=== PATIENT | female | born 1985 | race Hispanic/Latino ===

== ENCOUNTER 2018-09-30 23:00 | Emergency (ER) | payer OTHER ==
[2018-10-01] MEDS ORDERED: DERMABOND SKIN ADHESIVE TOP ONE (00:50)
[2018-10-01] MEDS ORDERED: TETANUS & DIPHTHERIA TOX,ADULT 0.5 ML VIAL ONE (00:50)
--- NOTE | 2018-10-01 01:00 | ER ---
Nurse's Notes [facility] Name: Mariza Stearns Age: 33 yrs Sex: Female : 1985 Arrival Date: 09/30/2018 Time: 23:02 Bed 17 Private MD: Diagnosis: Laceration without foreign body of thumb without damage to nail Presentation: 09/30 23:15 Presenting complaint: Patient states: "I cut my thumb while I was cutting a fruit with jd3 a knife.". Transition of care: patient was not received from another setting of care. Complicating Factors: There are no complicating factors for this patient. Onset of symptoms was September 30, 2018. Risk Assessment: Do you want to hurt yourself or someone else? Patient reports no desire to harm self or others. Initial Sepsis Screen: Does the patient meet any 2 criteria? No. Patient's initial sepsis screen is negative. Does the patient have a suspected source of infection? No. Patient's initial sepsis screen is negative. Care prior to arrival: None. 23:15 Method Of Arrival: Ambulatory j 23:15 Acuity: YANNI 4 jd3 [employer] DIRECTOR: 23:18 LMP 09/23/2018 jd3 Historical: - Allergies: 23:18 No Known Allergies; jd3 - Home Meds: 23:18 multivitamin oral oral [Active]; jd3 - PMHx: 23:18 None; jd3 - PSHx: 23:18 Tubal ligation; Cholecystectomy; jd3 - Immunization history:: Adult Immunizations up to date, Last tetanus immunization: unknown. - Social history:: Smoking status: Patient/guardian denies using tobacco. - Ebola Screening: : Patient negative for fever greater than or equal to 101.5 degrees Fahrenheit, and additional compatible Ebola Virus Disease symptoms. Screenin:22 Abuse screen: Denies threats or abuse. Nutritional screening: No deficits noted. jd3 Tuberculosis screening: No symptoms or risk factors identified. Fall Risk Ambulatory Aid- None/Bed Rest/Nurse Assist (0 pts). Gait- Normal/Bed Rest/Wheelchair (0 pts) Mental Status- Oriented to own ability (0 pts). Total Nunez Fall Scale indicates No Risk (0-24 pts). Assessment: 23:20 General: Appears in no apparent distress. uncomfortable, Behavior is calm, cooperative, jd3 appropriate for age. Pain: Complains of pain in palmar aspect of proximal phalanx of left thumb Quality of pain is described as aching, stinging. Neuro: Level of Consciousness is awake, alert, obeys commands, Oriented to person, place, time, situation. Cardiovascular: Capillary refill < 3 seconds Patient's skin is warm and dry. Respiratory: Airway is patent Respiratory effort is even, unlabored, Respiratory pattern is regular, symmetrical. GI: No signs and/or symptoms were reported involving the gastrointestinal system. : No signs and/or symptoms were reported regarding the genitourinary system. EENT: No signs and/or symptoms were reported regarding the EENT system. Derm: Skin is intact, Skin is dry, Skin is normal, Skin temperature is warm. Musculoskeletal: Circulation, motion, and sensation intact. Range of motion: intact in all extremities. Injury Description: Laceration sustained to palmar aspect of proximal phalanx of left thumb is clean, superficial, 2.6 to 7.5 cm long, is bleeding a small amount. 10/01 00:43 Reassessment: Patient appears in no apparent distress at this time. No changes from j previously documented assessment. Patient and/or family updated on plan of care and expected duration. Pain level reassessed. Patient is alert, oriented x 3, equal unlabored respirations, skin warm/dry/pink. 01:03 Reassessment: Patient appears in no apparent distress at this time. Patient and/or d3 family updated on plan of care and expected duration. Pain level reassessed. Patient is alert, oriented x 3, equal unlabored respirations, skin warm/dry/pink. reported understanding of discharge instructions, even and steady gait upon discharge. Patient states feeling better. Vital Signs: 09/30 23:09 BP 106 / 62; Pulse 48; Resp 17; Temp 97.7(O); Pulse Ox 100% on R/A; ar5 23:18 Pain 6/10; jd3 23:18 Weight 68.04 kg (R); Height 5 ft. 5 in. (165.10 cm) (R); d3 10/01 00:43 BP 124 / 86; Pulse 50; Resp 16 S; Pulse Ox 97% on R/A; jd3 09/30 23:18 Body Mass Index 24.96 (68.04 kg, 165.10 cm) jd3 ED Course: 09/30 23:02 Patient arrived in ED. ds1 23:15 Cornell Longo RN is Primary Nurse. jd3 23:17 Triage completed. jd3 23:20 Arm band placed on. jd3 23:22 Patient has correct armband on for positive identification. Bed in low position. Call jd3 light in reach. Side rails up X 1. Adult w/ patient. 10/01 00:08 Almaz Venegas FNP-C [facility]. snw 00:08 Quinn Orellana MD is Attending Physician. snw 01:02 No provider procedures requiring assistance completed. Patient did not have IV access jd3 during this emergency room visit. Administered Medications: 00:41 CANCELLED (Duplicate Order): Tetanus-Diphtheria Toxoid Adult 0.5 ml IM once jd3 00:42 Drug: Tetanus-Diphtheria Toxoid Adult 0.5 ml {Travel Ticketing Reviewer: [employer]. Exp: jd3 06/05/2020. Lot #: [id number]. } Route: IM; Site: right deltoid; 01:02 Follow up: Response: No adverse reaction jd3 Outcome: 00:41 Discharge ordered by . snw 01:02 Discharged to home ambulatory, with family. jd3 01:02 Condition: stable 01:02 Discharge instructions given to patient, family, Instructed on discharge instructions, follow up and referral plans. Demonstrated understanding of instructions, follow-up care. 01:03 Patient left the ED. jd3 Signatures: Almaz Venegas FNP-C [employer] SPECIALIST-Laney Rosanne Castano ds1 Cornell Longo RN RN Allison Pimentel ar5
--- NOTE | 2018-10-01 01:04 | EDPHYS ---
Physician Documentation [facility] Name: Mariza Stearns Age: 33 yrs Sex: Female : 1985 Arrival Date: 09/30/2018 Time: 23:02 Bed 17 Private MD: ED Physician Quinn Orellana HPI: 10/01 00:39 This 33 yrs old Female presents to ER via Ambulatory with complaints of snw Laceration To Hand. 00:39 The patient has a laceration related to: cooking, occurred at home, and there are no snw complicating factors. The injury was accidental. The laceration(s) is(are) located on the palmar aspect of proximal phalanx of left thumb. Onset: The symptoms/episode began/occurred suddenly, just prior to arrival. The patient has not experienced similar symptoms in the past. The patient has not recently seen a physician. 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 - Social history:: Smoking status: Patient/guardian denies using tobacco. - Ebola Screening: : Patient negative for fever greater than or equal to 101.5 degrees Fahrenheit, and additional compatible Ebola Virus Disease symptoms. ROS: 10/01 00:38 Constitutional: Negative for fever, chills, and weight loss, Eyes: Negative for injury, snw pain, redness, and discharge, ENT: Negative for injury, pain, and discharge, Neck: Negative for injury, pain, and swelling, Cardiovascular: Negative for chest pain, palpitations, and edema, Respiratory: Negative for shortness of breath, cough, wheezing, and pleuritic chest pain, Abdomen/GI: Negative for abdominal pain, nausea, vomiting, diarrhea, and constipation, Back: Negative for injury and pain, : Negative for injury, bleeding, discharge, and swelling, MS/Extremity: Negative for injury and deformity, Neuro: Negative for headache, weakness, numbness, tingling, and seizure, Psych: Negative for depression, anxiety, suicide ideation, homicidal ideation, and hallucinations. Skin: Positive for laceration(s), of the palmar aspect of proximal phalanx of left thumb. Exam: 00:37 Constitutional: This is a well developed, well nourished patient who is awake, alert, snw and in no acute distress. Head/Face: Normocephalic, atraumatic. Eyes: Pupils equal round and reactive to light, extra-ocular motions intact. Lids and lashes normal. Conjunctiva and sclera are non-icteric and not injected. Cornea within normal limits. Periorbital areas with no swelling, redness, or edema. ENT: Nares patent. No nasal discharge, no septal abnormalities noted. Tympanic membranes are normal and external auditory canals are clear. Oropharynx with no redness, swelling, or masses, exudates, or evidence of obstruction, uvula midline. Mucous membranes moist. Neck: Trachea midline, no thyromegaly or masses palpated, and no cervical lymphadenopathy. Supple, full range of motion without nuchal rigidity, or vertebral point tenderness. No Meningismus. Chest/axilla: Normal chest wall appearance and motion. Nontender with no deformity. No lesions are appreciated. Cardiovascular: Regular rate and rhythm with a normal S1 and S2. No gallops, murmurs, or rubs. Normal PMI, no JVD. No pulse deficits. Respiratory: Lungs have equal breath sounds bilaterally, clear to auscultation and percussion. No rales, rhonchi or wheezes noted. No increased work of breathing, no retractions or nasal flaring. Abdomen/GI: Soft, non-tender, with normal bowel sounds. No distension or tympany. No guarding or rebound. No evidence of tenderness throughout. Back: No spinal tenderness. No costovertebral tenderness. Full range of motion. MS/ Extremity: Pulses equal, no cyanosis. Neurovascular intact. Full, normal range of motion. Neuro: Awake and alert, GCS 15, oriented to person, place, time, and situation. Cranial nerves II-XII grossly intact. Motor strength 5/5 in all extremities. Sensory grossly intact. Cerebellar exam normal. Normal gait. Psych: Awake, alert, with orientation to person, place and time. Behavior, mood, and affect are within normal limits. 00:37 Skin: Appearance: normal except for affected area, injury, laceration(s), the wound is approximately 4 cm(s), with a depth of .5 cm(s), of the palmar aspect of proximal phalanx of left thumb. Vital Signs: 09/30 23:09 BP 106 / 62; Pulse 48; Resp 17; Temp 97.7(O); Pulse Ox 100% on R/A; ar5 23:18 Pain 6/10; jd3 23:18 Weight 68.04 kg (R); Height 5 ft. 5 in. (165.10 cm) (R); jd3 10/01 00:43 BP 124 / 86; Pulse 50; Resp 16 S; Pulse Ox 97% on R/A; jd3 09/30 23:18 Body Mass Index 24.96 (68.04 kg, 165.10 cm) jd3 MDM: 00:08 Patient medically screened. snw 00:42 Data reviewed: vital signs, nurses notes. Data interpreted: Pulse oximetry: on room air snw is 100 %. Interpretation: normal. Counseling: I had a detailed discussion with the patient and/or guardian regarding: the historical points, exam findings, and any diagnostic results supporting the discharge/admit diagnosis, the need for outpatient follow up, to return to the emergency department if symptoms worsen or persist or if there are any questions or concerns that arise at home. Special discussion: I discussed in detail with the patient the higher chance of wound infection based on his presenting history. Based on the history and exam findings, there is no indication for further emergent testing or inpatient evaluation. I discussed with the patient/guardian the need to see the primary care provider for further evaluation of the symptoms. 10/01 00:40 Order name: Wound Care; Complete Time: 00:42 snw 10/01 00:40 Order name: Wound dressing; Complete Time: 00:42 snw 10/01 00:40 Order name: Thumb Spica Splint; Complete Time: 01:02 snw 10/01 00:40 Order name: Dermabond; Complete Time: 00:42 snw Administered Medications: 00:41 CANCELLED (Duplicate Order): Tetanus-Diphtheria Toxoid Adult 0.5 ml IM once jd3 00:42 Drug: Tetanus-Diphtheria Toxoid Adult 0.5 ml {Mold Insert Changer: [employer]. Exp: jd3 06/05/2020. Lot #: [id number]. } Route: IM; Site: right deltoid; 01:02 Follow up: Response: No adverse reaction jd3 Disposition: 06:48 Co-signature as Attending Physician, Quinn Orellana MD I agree with the assessment and christine plan of care. Disposition: 10/01/18 00:41 Discharged to Home. Impression: Laceration without foreign body of thumb without damage to nail. - Condition is Stable. - Discharge Instructions: Cast or Splint Care, Adult, Tissue Adhesive Wound Care, Laceration Care, Adult, VIS, Tetanus, Diphtheria (Td) - [facility]. - Medication Reconciliation Form, Thank You Letter, Antibiotic Education, Prescription Opioid Use form. - Follow up: Private Physician; When: As needed; Reason: Recheck today's complaints, Re-evaluation by your physician. Follow up: Emergency Department; When: As needed; Reason: Worsening of condition. Signatures: Quinn Orellana MD MD cha Therrien, Shelly, [employer] ARCHITECT-C [employer] ARCHITECT-Laneyw Cornell Longo RN RN jd3 Corrections: (The following items were deleted from the chart) 00:41 00:41 Tetanus-Diphtheria Toxoid Adult 0.5 ml IM once ordered. jd3 jd3 00:41 00:41 Dermabond ordered. jd3 jd3 01:03 00:41 10/01/2018 00:41 Discharged to Home. Impression: Laceration without foreign body jd3 of thumb without damage to nail. Condition is Stable. Forms are Medication Reconciliation Form, Thank You Letter, Antibiotic Education, Prescription Opioid Use. Follow up: Private Physician; When: As needed; Reason: Recheck today's complaints, Re-evaluation by your physician. Follow up: Emergency Department; When: As needed; Reason: Worsening of condition. snw
== END 2018-10-01 01:03 | disposition home or self-care (01) ==
LOC: ER 23:00
PROC: 0JQK0ZZ Repair Left Hand Subcutaneous Tissue and Fascia, Open Approach (ICD-10-PCS; principal; 2018-10-01)
DX: S61.012A Laceration without foreign body of left thumb without damage to nail, initial encounter (principal); W45.8XXA Other foreign body or object entering through skin, initial encounter; Y93.G3 Activity, cooking and baking; Y92.000 Kitchen of unspecified non-institutional (private) residence as the place of occurrence of the external cause; Z23 Encounter for immunization
CPT/HCPCS: 90471; 90714; 99283